=== PATIENT | male | born 1975 ===

== ENCOUNTER 2023-05-06 05:50 | Day surgery (SDC) | payer OTHER ==
[~2023-05-06] VITALS: Ht 185.4 cm; Wt 93.0 kg
== END 2023-05-06 16:20 | disposition home or self-care (01) ==
LOC: CIR.AMB 05:50
PROVIDERS: ATTEND Urology
DX: N47.6 Balanoposthitis (principal); N47.1 Phimosis; Z20.822 Contact with and (suspected) exposure to COVID-19